=== PATIENT | male | born 1985 | race African-American/Black ===

== ENCOUNTER 2019-02-07 01:34 | Emergency (ER) | payer MEDICAID, MEDICARE ==
[~2019-02-07] VITALS: Ht 185.4 cm; Wt 113.0 kg
[2019-02-07] MEDS ORDERED: MORPHINE SULFATE 4 MG/ML CPJ (NOT FOR IM USE) IV STA (03:25)
[2019-02-07] MEDS ORDERED: SODIUM CHLORIDE 0.9% 1,000 ML IV ONE (03:25)
[2019-02-07] MEDS ORDERED: ONDANSETRON HCL 4MG/2ML INJ IV STA (03:25)
[2019-02-07] MEDS ORDERED: CEFAZOLIN 1000MG PREMIX 50 ML IV ONE (03:30)
[2019-02-07] MEDS ORDERED: TETANUS, DIPHTHERIA, PERTUSSIS VAC/PF 0.5ML (>7YR OLD) IM ONE (03:30)
[2019-02-07 04:19] LABS: HEMATOCRIT. 39.6 % (42.0-52.0); MEAN CORPUSCULAR HEMOGLOBIN 28.2 pg (28.0-32.0); MEAN CORPUSCULAR VOLUME 85.7 fL (80.0-94.0); MEAN PLATELET VOLUME 9.4 fl (7.4-10.4); PLATELET 229 x1000/uL (130-400); RED BLOOD CELL COUNT 4.62 mill/uL (4.7-6.1)
[2019-02-07 04:29] LABS: CHLORIDE 107 mEq/L (98-107)
[2019-02-07 04:33] LABS: ETHANOL BLOOD < 10 mg/dL
[2019-02-07] MEDS ORDERED: MORPHINE SULFATE 4 MG/ML CPJ (NOT FOR IM USE) IV ONE (05:00)
[2019-02-07 05:20] LABS: CLARITY URINE CLEAR (CLEAR); COLOR URINE YELLOW (YELLOW); KETONES URINE NEGATIVE (NEGATIVE); LEUKOCYTE ESTERASE URINE NEGATIVE (NEGATIVE); NITRITE URINE NEGATIVE (NEGATIVE); OCCULT BLOOD URINE NEGATIVE (NEGATIVE); PROTEIN URINE NEGATIVE (NEGATIVE); SPECIFIC GRAVITY URINE 1.012 (1.005-1.030); UROBILINOGEN URINE 0.2 E.U./dL (0.2-1.0)
[2019-02-07 05:31] LABS: *AMPHETAMINES SCREEN URINE NEGATIVE (NEGATIVE); *BARBITURATES SCREEN URINE NEGATIVE (NEGATIVE); *BENZODIAZEPINES SCREEN URINE NEGATIVE (NEGATIVE); *COCAINE SCREEN URINE NEGATIVE (NEGATIVE)
[2019-02-07 05:32] LABS: CANNABINOID URINE SCREEN PRESUMTIVE POSITIVE (NEGATIVE); METHADONE URINE SCREEN NEGATIVE (NEGATIVE); OPIATES URINE SCREEN PRESUMTIVE POSITIVE (NEGATIVE); PHENCYCLIDINE URINE SCREEN NEGATIVE (NEGATIVE)
[2019-02-07 06:57] LABS: PLATELET ESTIMATE NORMAL
[2019-02-07 09:12] VITALS: BP 125/68
== END 2019-02-07 09:24 | disposition short-term general hospital (02) ==
LOC: ER 01:34
DX: S02.609A Fracture of mandible, unspecified, initial encounter for closed fracture (principal); Y08.89XA Assault by other specified means, initial encounter; Y93.9 Activity, unspecified; Y92.9 Unspecified place or not applicable
CPT/HCPCS: 36415; 70450; 70486; 71250; 72125; 74176; 80053; 80305; 80320; 81003; 85025; 90471; 90715; 96365; 96366; 96375; 96376; 99285; J0690; J2270; J2405; J7030; G0480

== ENCOUNTER 2021-08-29 19:02 | Emergency (ER) | payer MEDICARE, OTHER ==
[~2021-08-29] VITALS: Ht 177.8 cm; Wt 79.0 kg
[2021-08-29 19:04] VITALS: BP 173/61
[2021-08-29] MEDS ORDERED: LIDOCAINE HCL/EPINEPHRINE 1%-EPI 1:100,000 50 ML VIAL INFIL ONE (21:45)
[2021-08-29] MEDS ORDERED: LIDOCAINE HCL/EPINEPHRINE 1%-EPI 1:100,000 10 ML VIAL IJ NR (22:24)
[2021-08-30] MEDS ORDERED: AMOX-424 MT (00:24)
[2021-08-30] MEDS ORDERED: BACI3.5O5 OP (00:25)
[2021-08-30] MEDS ORDERED: BACITRACIN/POLYMYXIN B SULFATE OINT 15GM TOP ONE (00:30)
== END 2021-08-30 00:45 | disposition home or self-care (01) ==
LOC: ER 19:02
DX: S61.210A Laceration without foreign body of right index finger without damage to nail, initial encounter (principal); W22.8XXA Striking against or struck by other objects, initial encounter; Y93.B1 Activity, exercise machines primarily for muscle strengthening; Y92.9 Unspecified place or not applicable
CPT/HCPCS: 12002; 73130; 99283; J3490

== ENCOUNTER 2021-09-19 08:11 | Emergency (ER) | payer MEDICARE, MEDICAID ==
[~2021-09-19] VITALS: Ht 175.3 cm; Wt 102.0 kg
[~2021-09-19 08:11] MED LIST: AMOX-424 MT; BACI3.5O5 OP
[2021-09-19] MEDS ORDERED: IBUPROFEN 600MG TABLET PO ONE (08:30)
[2021-09-19 08:41] VITALS: BP 112/73
== END 2021-09-19 08:43 | disposition home or self-care (01) ==
LOC: ER 08:22
DX: Z48.02 Encounter for removal of sutures (principal)
CPT/HCPCS: 99281